=== PATIENT | male | born 1985 | race Caucasian/White ===

== ENCOUNTER 2019-04-03 09:56 | Emergency (ER) | payer SELFPAY ==
[2019-04-03] MEDS ORDERED: Ciprofloxacin/Dexamethasone 0.3-0.1% Otic Susp 7.5 ML Bottle EARRT STA (10:16)
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
[2019-04-03 10:47] VITALS: BP 174/102; PULSE 101
== END 2019-04-03 10:47 | disposition home or self-care (01) ==
LOC: MW.ED 09:56
DX: H66.001 Acute suppurative otitis media without spontaneous rupture of ear drum, right ear (principal); H60.501 Unspecified acute noninfective otitis externa, right ear; J02.9 Acute pharyngitis, unspecified; E03.9 Hypothyroidism, unspecified; E66.9 Obesity, unspecified; Z68.33 Body mass index [BMI] 33.0-33.9, adult; Z79.899 Other long term (current) drug therapy
CPT/HCPCS: 87880-QW; 99283